=== PATIENT | male | born 1960 | race Caucasian/White ===

== ENCOUNTER 2019-07-20 12:34 | Observation (INO) | payer OTHER, SELFPAY ==
[2019-07-20 12:35] VITALS: BP 183/99; PULSE 76; RESP 18; TEMP 36.6; O2SAT 96; BMI 33.7
--- NOTE | 2019-07-20 12:56 | CT_ITS ---
STUDY: CT ABDOMEN AND PELVIS WITHOUT CONTRAST REASON FOR EXAM: Male, 59 years old. Sharp left lower quadrant pain with nausea, vomiting and constipation RADIATION DOSAGE (If Supplied By Facility): CTDIvol = ( 21.89 ) mGy, DLP = ( 1175.79 ) mGycm TECHNIQUE: Transaxial images were obtained from the dome of the diaphragm to the symphysis pubis without oral contrast, and without intravenous contrast. Sagittal and coronal images were reconstructed. Individualized dose optimization techniques were used for this CT. COMPARISON: None. FINDINGS: The visualized lung bases are unremarkable. The visualized portions of the heart are within normal limits. There is decreased attenuation of the liver consistent with steatosis. Normal gallbladder and extrahepatic biliary system. Normal spleen. Normal pancreas. Normal bilateral adrenal glands. 7 mm calculus of the left UVJ seen on image 180 with mild left hydronephrosis and perinephric edema. No additional urinary tract calcifications identified. Normal visualized stomach. Normal small intestine. There are multiple colonic diverticula consistent with diverticulosis. The appendix is visualized and appears normal. Normal abdominal aorta. Normal inferior vena cava. Normal retroperitoneum. Normal urinary bladder. There are prostatic calcifications. There is a small umbilical hernia containing fat. Degenerative changes of the lumbar spine. CT/Abdomen/Pelvis without Cont IMPRESSION: 7 mm left UPJ calculus with mild hydronephrosis/obstruction. Electronically Signed: Shalom Medina MD ([place]) at 13:44 EDT , Service support ,
--- NOTE | 2019-07-20 12:57 | ED.VIS.GEN ---
History of Present Illness Chief Complaint: Abd Pain Detail of Chief Complaint: Left lower quadrant pain Informant: Patient Onset: Yesterday Context: Gradual Onset Timing: Waxes and wanes Current Severity: Moderate Maximum Severity: Moderate Narrative: Patient presents with left lower quadrant pain that started yesterday. He does feel nauseated and did vomit after breakfast this morning. Last bowel movement was yesterday and normal. He was able to pass gas today. Patient denies history of diverticulitis. He has had a prior kidney stone which she was able to pass without surgery. Past Medical History - Allergies and Home Meds Allergies/Adverse Reactions: Allergies No Known Allergies Allergy (Verified 07/20/19 12:38) Primary Care Physician: [facility] Doctor,Out of [NON-STAFF] - Prior records reviewed: Yes Past Medical History: - - Reviewed Lives: Spouse/ Significant Other Review of Systems General: Denies: Chills, Fever Eyes: Denies: Visual changes - bilaterally ENT: Denies: Bilateral ear pain Cardiovascular: Denies: Chest pain Respiratory: Denies: Dyspnea, Cough Gastrointestinal: Reports: Abdominal pain, Nausea, Vomiting. Denies: Diarrhea, Constipation Genitourinary: Denies: Dysuria Musculoskeletal: Denies: Back pain, Extremity Pain Skin: Denies: Rash Neurological: Denies: Headache Allergy: Denies: Uticaria Physical Exam Vital Signs/Narrative: Vital Signs Temp Pulse Resp BP Pulse Ox 07/20/19 12:35 97.8 F 76 18 183/99 H 96 Inital Vital Signs reviewed: Yes General: Well nourished, Well developed Head: Normocephalic ENT: Moist mucous membranes Neck: Supple Cardiovascular: Regular rate, Regular rhythm Respiratory: No distress, CTA bilaterally Abdomen: Soft, Tender - Left lower quadrant tenderness to palpation., Hypoactive bowel sounds, - - Abdomen is distended. He does have a periumbilical hernia that is soft and nontender. Back: Nontender. Negative for: CVA tenderness Extremities: Nontender Skin: Normal color Neurological: Alert, Oriented x3 Psychological: Normal affect Diagnostic/Tx/Re-eval Impressions Abdomen/Pelvis CT 07/20/19 12:56 IMPRESSION: 7 mm left UPJ calculus with mild hydronephrosis/obstruction. Electronically Signed: Shalom Medina MD ([place]) at 13:44 EDT , Service support , 07/20/19 12:56 Abdomen/Pelvis without Cont [CT] Stat Laboratory Results 07/20/19 07/20/19 07/20/19 13:10 13:10 14:44 WBC 11.9 H RBC 5.65 Hgb 16.4 Hct 50.8 MCV 89.9 MCH 29.0 MCHC 32.3 RDW Std Deviation 42.9 RDW Coeff of Niharika 13.1 Plt Count 303 MPV 9.4 Immature Gran % (Auto) 0.500 Neut % (Auto) 88.4 H Lymph % (Auto) 6.0 L [place] % (Auto) 4.8 Eos % (Auto) 0.0 Baso % (Auto) 0.3 Absolute Neuts (auto) 10.5 H Absolute Lymphs (auto) 0.72 L Nucleated RBC % 0 Sodium 140 Potassium 4.1 Chloride 104 Carbon Dioxide 33.0 H Anion Gap 3 L BUN 16 Creatinine 1.24 Estim Creat Clear Calc 61.29 Est GFR (MDRD) Af Amer 76 Est GFR (MDRD) Non-Af 63 BUN/Creatinine Ratio 12.9 Glucose 168 H Calcium 9.0 Urine Color Yellow Urine Clarity Sl. Cloudy Urine pH 8.0 Ur Specific [place] 1.015 Urine Protein 15 H Urine Glucose (UA) Normal Urine Ketones Negative Urine Occult Blood Negative Urine Nitrite Negative Urine Bilirubin Negative Urine Urobilinogen Normal Ur Leukocyte Esterase 25 H Urine RBC 0 SEEN Urine WBC 0-5 SEEN Ur Squamous Epith Cells 0-5 SEEN Amorphous Sediment 2+ Urine Bacteria 2+ Urine Mucus 0 SEEN - Medical Decision Making Patient was initially given morphine, Zofran, and IV fluids. On repeat evaluation he was still having some pain. He was given a second dose of morphine along with Toradol. At this time patient is resting comfortably. Family is very concerned about starting home (they live in [place]) and having another attack of pain. They would prefer to have him admitted for stent placement if possible. He has required multiple doses of pain medication here and has a large stone that is still very proximal in the ureter. I will speak with Dr. Bray for admission. ED Disposition - Plan for ED Patient: Disposition: Acute Care [facility] Diagnosis: Kidney stone on left side Referrals: [facility] Doctor,Out of [NON-STAFF] -
[2019-07-20] MEDS: Morphine 4 MG/ML Syringe IV ×2 (13:16→15:06)
[2019-07-20] MEDS: Ondansetron 4 MG/2 ML Vial IV (13:16)
[2019-07-20] MEDS: 0.9% Normal Saline 1,000 ML 150 ML IV (13:23)
[2019-07-20 13:29] LABS: Absolute Lymphocyte Count 0.72 X10^3/uL (0.83-4.51); Absolute Neutrophil Count 10.5 X10^3/uL (2.0-7.7); Basophil# 0.04 X10^3/uL; Basophil% 0.3 % (0-1); Hematocrit 50.8 % (40-54); Hemoglobin 16.4 g/dL (13.0-16.5); Lymphocyte # 0.72 X10^3/ul (4.0); Mean Corp Hgb Conc 32.3 g/dL (32-36); Mean Corpuscular Volume 89.9 fL (80-94); Mean Platelet Vol. 9.4 fl (6.2-12.0); Monocyte# 0.57 X10^3/uL; Monocyte% 4.8 % (0-10); NRBC Flagged by Analyzer 0 % (0-5); Neutrophil # 10.53 X10^3/uL (2.7-7.7); Neutrophil % 88.4 % (47-70); Platelet Count 303 K/mm3 (150-450); RBC Distribution Width CV 13.1 % (11.6-14.6); RBC Distribution Width SD 42.9 fl (35.1-43.9); Red Blood Count 5.65 M/mm3 (4.6-6.2); White Blood Count 11.9 K/mm3 (4.4-11.0)
[2019-07-20 13:42] LABS: Anion Gap 3 (5-15); BUN 16 mg/dL (7-18); BUN/Creat Ratio 12.9 RATIO (10-20); Chloride 104 mmol/L (98-107); Creatinine, Serum 1.24 mg/dL (0.70-1.30); EST Glomerular Filtration Rate 63 mL/min (>60); Est Glom Filt Rate - Afr Amer 76 mL/min (>60); Estimated Creatinine Clearance 61.29 ml/min; Glucose 168 mg/dL (74-106); Potassium 4.1 mmol/L (3.5-5.1); Sodium Level 140 mmol/L (136-145)
[2019-07-20 14:00] VITALS: BP 161/96; PULSE 85; RESP 16
[2019-07-20 14:49] LABS: Mucous, Urine 0 SEEN /hpf (<or=2+); Red Blood Cells-Urine 0 SEEN /hpf (0-5)
[2019-07-20 14:53] LABS: Color, Urine Yellow (Yellow); Glucose, Dipstick Normal (Normal); Ketone-Dipstick Negative (Negative); Leukocyte Esterase-Dipstick 25 /ul (Negative); Nitrite-Dipstick Negative (Negative); Occult Blood-Urine Negative /ul (Negative); Protein-Dipstick 15 mg/dl (Negative); Specific Gravity, Urine 1.015 (1.002-1.030); Urine Bilirubin Dipstick Negative (Negative); Urine Clarity Sl. Cloudy (Clear); Urine Urobilinogen Normal (Normal)
[2019-07-20 15:00] LABS: Amorphous Sediment 2+; Bacteria 2+ /hpf (None Seen); Squamous Epithelial Cells - UA 0-5 SEEN /hpf (0-5); White Blood Cells 0-5 SEEN /hpf (0-5)
[2019-07-20] MEDS: Ketorolac 30 MG/ML Syringe IV (15:06)
--- NOTE | 2019-07-20 16:13 | NURSING ---
MED SURG OBS LEFT URETEROLITHIASIS ANALY
[2019-07-20 16:23] VITALS: BP 158/93; PULSE 94; RESP 15
[2019-07-20 17:29] VITALS: BMI 37.4
[2019-07-20 17:37] VITALS: BMI 37.4
[2019-07-20 18:00] VITALS: BP 145/88; PULSE 87; RESP 18; TEMP 36.8; O2SAT 93
--- NOTE | 2019-07-20 18:04 | HP.PCM_ITS ---
Problem List (1) Kidney stone on left side Status: Acute History of Present Illness Date of Admission: 07/20/19 Chief Complaint: left kidney stone. The patient is a 59 year old male with large left obstructing kidney stone. admitted for pain control. plan for surgery tomorrow. Past Medical History Allergies No Known Allergies Allergy (Verified 07/20/19 12:38) Home Medications: Ambulatory Orders Medication Instructions Recorded NK 07/20/19 Surgical History: no surgical history Psychiatric History: No pertinent psych hx Lives: Spouse/ Significant Other Smoking Status: Never smoker Tobacco Use: Non-smoker Alcohol: None Drugs: None - *Family History Maternal History Items: No pertinent history Review of Systems Constitutional: Denies: Chills, Fever, Weight Change HEENT: Denies: Head Aches, Sinus Congestion, Sinus Drainage Cardiovascular: Denies: Chest Pain, Palpitations Respiratory: Denies: Cough, Shortness of breath at rest, Sputum production Gastrointestinal: Denies: Abdominal Pain, Nausea, Vomiting Genitourinary: Denies: Dysuria Musculoskeletal: Denies: Joint Pain, Joint Tenderness Skin: Denies: Rash, Wounds Neurological: Denies: Numbness, Tingling, Focal weakness Psychiatric: Denies: Anxiety, Depression, Homicidal Ideations, Suicidal Ideation s Hematologic/ Lymphatic: Denies: Easy Bruising, Easy Bleeding VTE Information - Inpt Only VTE Present on Admission: No VTE Mechan Device Prophylaxis: SCD's Patient Problems: Active and Suspected Problems Kidney stone on left side (Acute) - Physical Exam Vitals/I&O's: Vital Signs Temp Pulse Resp BP Pulse Ox 97.8 F 94 15 158/93 H 96 07/20/19 12:35 07/20/19 16:23 07/20/19 16:23 07/20/19 16:23 07/20/19 12:35 Oxygen Delivery Method Room Air Weight: 111.7 kg Body Mass Index (BMI) 37.4 General: Alert, Oriented x3, Cooperative HEENT: Atraumatic, PERRLA, EOMI, Normocephalic Neck: Supple, No JVD, Negative Carotid Bruits Lungs: Clear to auscultation, Normal air movement Cardiovascular: Regular rate, No murmurs Abdomen: Bowel Sounds Present, Soft, Non Tender Extremities: No edema, Capillary Refill Less than 3 Seconds Skin: No rashes, No breakdown Musculoskeletal: No Tenderness to Palpation of Joints or Extremities Neurological: Cranial nerves II-XII grossly intact Psych/Mental Status: Normal Affect, Appropriate Laboratory Results 07/20/19 13:10: WBC 11.9 H, RBC 5.65, Hgb 16.4, Hct 50.8, MCV 89.9, MCH 29.0, MCHC 32.3, RDW Std Deviation 42.9, RDW Coeff of Niharika 13.1, Plt Count 303, MPV 9.4, Immature Gran % (Auto) 0.500, Neut % (Auto) 88.4 H, Lymph % (Auto) 6.0 L, [place] % (Auto) 4.8, Eos % (Auto) 0.0, Baso % (Auto) 0.3, Absolute Neuts (auto) 10.5 H, Absolute Lymphs (auto) 0.72 L, Nucleated RBC % 0 07/20/19 13:10: Sodium 140, Potassium 4.1, Chloride 104, Carbon Dioxide 33.0 H, Anion Gap 3 L, BUN 16, Creatinine 1.24, Estim Creat Clear Calc 61.29, Est GFR (MDRD) Af Amer 76, Est GFR (MDRD) Non-Af 63, BUN/Creatinine Ratio 12.9, Glucose 168 H, Calcium 9.0 07/20/19 14:44: Urine Color Yellow, Urine Clarity Sl. Cloudy, Urine pH 8.0, Ur Specific [place] 1.015, Urine Protein 15 H, Urine Glucose (UA) Normal, Urine Ketones Negative, Urine Occult Blood Negative, Urine Nitrite Negative, Urine Bilirubin Negative, Urine Urobilinogen Normal, Ur Leukocyte Esterase 25 H, Urine RBC 0 SEEN, Urine WBC 0-5 SEEN, Ur Squamous Epith Cells 0-5 SEEN, Amorphous Sediment 2+, Urine Bacteria 2+, Urine Mucus 0 SEEN Current Medications Sodium Chloride () 1,000 mls @ 150 mls/hr IV .[id number] [facility] Last Admin: 07/20/19 13:23 Dose: 150 mls/hr Documented by: Morphine Sulfate () 2 mg IV Q2H PRN PRN PRN Reason: Pain Score 1-10/10 Assessment/Plan All Active Problems Kidney stone on left side (Acute) 59 yo male with left kidney stone reg food npo at midnight bipap. surgery tomorrow.
[2019-07-20] MEDS: 0.9% Normal Saline 1,000 ML 75 ML IV (18:15)
--- NOTE | 2019-07-20 18:38 | EKG12_ITS ---
Test Reason : AM EKG Blood Pressure : / mmHG Vent. Rate : 067 BPM Atrial Rate : 067 BPM P-R Int : 160 ms QRS Dur : 114 ms QT Int : 414 ms P-R-T Axes : 046 018 033 degrees QTc Int : 437 ms Normal sinus rhythm Nonspecific T wave abnormality Abnormal ECG Confirmed by TI MANCUSO, GEMA ([id number]), design editor JASMIN MASON ([id number]) on 07/23/2019 10:12:18 AM Referred By: David Bray Confirmed By:GEMA LUKE MD
[2019-07-20] MEDS: Morphine 2 MG/ML Syringe IV (21:19)
[2019-07-20] MEDS: Docusate Sodium 100 MG Capsule PO (21:19)
[2019-07-20 22:00] VITALS: BP 146/85; PULSE 70; RESP 20; TEMP 36.8; O2SAT 94
[2019-07-20 22:04] VITALS: RESP 18
[2019-07-21] VITALS (11 sets, daily range): BP systolic 143–191; BP diastolic 80–100; PULSE 57–82; RESP 16–20; TEMP 36.5–37.3; O2SAT 91–96; BMI 37.3
[2019-07-21] MEDS: Morphine 2 MG/ML Syringe IV ×3 (01:16→08:31)
[2019-07-21] MEDS: 0.9% Saline Lock 10 ML Syringe IV ×2 (04:26→08:32)
[2019-07-21] MEDS: 0.9% Normal Saline 1,000 ML 75 ML IV (04:26)
[2019-07-21 06:00] LABS: Hematocrit 46.3 % (40-54); Hemoglobin 14.4 g/dL (13.0-16.5); Mean Corp Hgb Conc 31.1 g/dL (32-36); Mean Corpuscular Hgb 28.7 pg (27.0-32.0); Mean Corpuscular Volume 92.4 fL (80-94); Mean Platelet Vol. 9.5 fl (6.2-12.0); Platelet Count 268 K/mm3 (150-450); RBC Distribution Width CV 13.5 % (11.6-14.6); RBC Distribution Width SD 45.6 fl (35.1-43.9); Red Blood Count 5.01 M/mm3 (4.6-6.2); White Blood Count 12.7 K/mm3 (4.4-11.0)
[2019-07-21 06:26] LABS: Anion Gap 5 (5-15); BUN 20 mg/dL (7-18); BUN/Creat Ratio 14.3 RATIO (10-20); Calcium,Total 8.1 mg/dL (8.5-10.1); Chloride 108 mmol/L (98-107); EST Glomerular Filtration Rate 55 mL/min (>60); Est Glom Filt Rate - Afr Amer 66 mL/min (>60); Estimated Creatinine Clearance 54.29 ml/min; Glucose 164 mg/dL (74-106); Potassium 3.9 mmol/L (3.5-5.1); Sodium Level 141 mmol/L (136-145)
--- NOTE | 2019-07-21 11:33 | NURSING ---
pt off unit to AC
--- NOTE | 2019-07-21 13:27 | DCINST_ITS ---
- Discharge Diagnoses Current Active Problems: Current Active and Chronic Problems Kidney stone on left side (Acute) Reason(s) for Visit for Discharge Instructions: Left Laser stones and stent placement You will use the following diet at home:: Regular Your food should be the consistency of: Regular Discharge Activity: Return to Normal Activity Call your doctor if your incision/area has: Sudden Increased Bleeding Call your doctor if you observe: Fever of 101 or Higher Allergies/Adverse Reactions: Allergies No Known Allergies Allergy (Verified 07/20/19 12:38) Medications to take at Discharge Ciprofloxacin [Cipro] 500 mg PO BID #6 tab 07/21/19 Hydrocodone/Acetaminophen [[place] 5-325 Tablet] 1 ea PO Q4H PRN PRN #14 tab 07/21/19 The following prescriptions were given: Ciprofloxacin [Cipro] 500 mg PO BID #6 tab Prescription Printed Hydrocodone/Acetaminophen [[place] 5-325 Tablet] 1 ea PO Q4H PRN PRN #14 tab PRN Reason: Pain Score 1-5/10 Prescription Printed Primary Care Physician: [facility] Doctor,Out of [NON-STAFF] - Test Results: Test results from this visit will be discussed in further detail at your follow- up appointment, if applicable. Please Follow Up With: David Bray MD When: Stent can be removed by you, or family doctor or myself in 10 days.
[2019-07-21] MEDS: Cefazolin 2 GM in 0.9% Normal Saline 100 ML IV (13:31)
--- NOTE | 2019-07-21 13:54 | PCM.OPRPT ---
Problem List (1) Kidney stone on left side Status: Acute Report of Operation Date of Procedure: 07/21/19 Pre-Operative Diagnosis: Left UPJ stone Post-Operative Diagnosis: Same Surgery/Procedure Performed:: Cystoscopy, left retrograde pyelogram, interpretation fluoroscopic images, balloon dilation of the left ureter, left ureteroscopy laser lithotripsy of stone and stent placement Description of Surgical Findings:: 59-year-old male taken back to the operating room at the smooth induction of general anesthesia he was placed in dorsolithotomy position, penis and testicles were prepped and draped in usual sterile fashion went into the bladder with a 21 [place] rigid ureteroscope, the entire length urethra is normal prostate was normal identified the trigone I then cannulated the right ureter orifice with a Glidewire advanced a balloon dilator up the ureter and balloon dilated the distal right ureter, then after this I went over the wire with a flexible ureteroscope was able to get into the kidney and then encountered the stone in the pelvis of the kidney I then use a 270 ?m laser fiber and laser the stone little tiny pieces that should pass on their own, I then performed a retrograde pyelogram, and then worked my way down the ureter left the wire in place through the ureteroscope the wire coiled up in the collecting system in the bladder and then pushes stent over the wire up into the kidney with the stent was in good position and pulled the wire the stent coiled in the kidney and bladder good position of the long string of the stent which then can be removed in about 10 days from the surgery. Recommend we do a KUB before to make sure the stone fragments of past. Patient will be given a copy of this operative report to be given to another physician as he wishes to go back out of town to remove the stent. Or he can come back to my office to remove the stent if he wishes. Type of Anesthesia:: General Drains: stent left - Admit VTE Documentation VTE Present on Admission: No VTE Mechan Device Prophylaxis: SCD's
[2019-07-21] MEDS: Ibuprofen 600 MG Tablet PO (17:03)
[2019-07-21] MEDS: hydrALAZINE 20 MG/ML Vial 5 MG IV (17:59)
== END 2019-07-21 19:11 | disposition home or self-care (01) ==
LOC: ED 16:00 → MS3 07-21 05:48
PROVIDERS: Admitting Provider Urology; Emergency Provider Emergency Medicine; Referring Provider Urology; Visit Provider Urology
PROC: 0TJ98ZZ Inspection of Ureter, Via Natural or Artificial Opening Endoscopic (ICD-10-PCS; CPT 52352; principal; 2019-07-21 08:40)
DX: N13.2 Hydronephrosis with renal and ureteral calculous obstruction (principal); R94.31 Abnormal electrocardiogram [ECG] [EKG]; Z87.442 Personal history of urinary calculi; G47.30 Sleep apnea, unspecified; Z99.81 Dependence on supplemental oxygen; Z91.19 Patient's noncompliance with other medical treatment and regimen
CPT/HCPCS: 00918; 52356; 36415; 74176; 76000; 80048; 81001; 85025; 85027; 93005; 96361; 96374; 96375; 96376; 97802; 99218; 99284; J7030; A4216; C1769; C2617; G0378; J2405